=== PATIENT | male | born 1990 | race American Indian/Alaskan Native ===

== ENCOUNTER 2017-06-30 13:04 | Emergency (ER) | payer MEDICAID ==
[2017-06-30 13:46] VITALS: BP 110/55
[2017-06-30] MEDS ORDERED: Bacitracin Oint 1 GM U/D Packet TOP ONE (14:23)
[2017-06-30] MEDS ORDERED: Acetaminophen/HYDROcodone 325-5 MG Tab PO ONE (14:23)
[2017-06-30] MEDS ORDERED: Ibuprofen 600 MG Tab PO ONE (14:23)
--- NOTE | 2017-06-30 14:37 | EDM.PDOC ---
ED HPI GENERAL MEDICAL PROBLEM - General Chief Complaint: Upper Extremity Injury/Pain Stated Complaint: HURT RT MIDDLE FINGER Time Seen by Provider: 06/30/17 14:30 Source of Information: Reports: Patient History Limitations: Reports: No Limitations - History of Present Illness INITIAL COMMENTS - FREE TEXT/NARRATIVE: Rudi is an otherwise healthy 26 year old male who presents to the ED today with c/o increased swelling and pain to right middle finger. Patient denies any fever/nausea/vomiting. Any movement makes the pain worse, he has not been taking any medication to help improve the pain. Patient denies any injury. Does bite his nails frequently. Duration: Day(s): (5) - Related Data Allergies Allergy/AdvReac Type Severity Reaction Status Date / Time No Known Allergies Allergy Verified 06/30/17 13:56 Home Meds: Home Meds NK [No Known Home Meds] 06/30/17 [History] Past Medical History - Past Health History Medical/Surgical History: Denies Medical/Surgical History Social & Family History - Tobacco Use Smoking Status *Q: Current Every Day Smoker Years of Tobacco use: 10 Packs/Tins Daily: 0.2 Review of Systems - Review of Systems Review Of Systems: ROS reveals no pertinent complaints other than HPI. ED EXAM, GENERAL - Physical Exam Exam: See Below Exam Limited By: No Limitations General Appearance: Alert, WD/WN, No Apparent Distress Respiratory/Chest: No Respiratory Distress Cardiovascular: Regular Rate, Rhythm Extremities: Normal Inspection, Normal Range of Motion, Normal Capillary Refill Neurological: Alert, Oriented, CN II-XII Intact Psychiatric: Normal Affect, Normal Mood Skin Exam: Warm, Dry, Other (abscess to left lateral portion of left third distal phalangee consistent with paronychia. No redness or streaking proximally ) Lymphatic: No Adenopathy Course - Vital Signs Last Recorded V/S: Last Vital Signs Temp 35.9 C 06/30/17 14:00 Pulse 64 06/30/17 14:00 Resp 16 06/30/17 14:00 BP 110/55 L 06/30/17 14:00 Pulse Ox 98 06/30/17 14:00 Rudi is an otherwise healthy 26 year old male who presents to the ED today with c/o right middle finger swelling and pain. Patient has an acute paronychia with significant swelling. Finger tourniquet was used and area to the left of nail laterally was cleaned with hebicleans. Straight incision was made extending into area of swelling just under nail bed in soft tissue of finger with very large amounts of purulent and sanguineous drainage out. Area was well irrigated then washed with soap and water, bacitracin was applied and finger gauze. I will start patient on Augmentin for the next 10 days. He was given Ibuprofen and [place] here in the ED. He can continue taking Ibuprofen for pain and inflammation. I discussed with patient that it was pertinent he started his antibiotics today and made sure he completed them. I also informed patient that I would like him seen by his primary care provider on Sunday for wound recheck. Reasons to return to the ED were discussed in detail. Patient was agreeable to plan of care and discharged in stable condition. - Orders/Labs/Meds Meds: Medications Discontinued Medications Generic Name Dose Route Start Last Admin Trade Name Freq PRN Reason Stop Dose Admin Hydrocodone Bitart/Acetaminophen 2 tab 06/30/17 14:23 [place] 325-5 Mg PO 06/30/17 14:24 ONETIME ONE Bacitracin 1 dose 06/30/17 14:23 Bacitracin Oint 1 Gm TOP 06/30/17 14:24 ONETIME ONE Ibuprofen 600 mg 06/30/17 14:23 Motrin PO 06/30/17 14:24 ONETIME ONE Departure - Departure Time of Disposition: 14:45 Disposition: Home, Self-Care 01 Condition: Good Clinical Impression: Paronychia of finger of right hand - Discharge Information Instructions: Paronychia Referrals: PCP,None [Primary Care Provider] - Additional Instructions: Keep current dressing on for 24 hours. Take Ibuprofen for pain as prescribed. Take Augmentin as prescribed starting today as soon as you leave here. You have an impressive finger infection, you need to keep this clean, apply bacitracin twice daily for the next 3 days. You need to have this checked in clinic on Sunday to ensure it is healing well, if you cannot get into the clinic you can return to the Emergency Department for a wound check. If you develop any complications or worsening symptoms, please return here.
== END 2017-06-30 14:49 | disposition home or self-care (01) ==
LOC: JP.ED 13:04
DX: L03.011 Cellulitis of right finger (principal); F17.210 Nicotine dependence, cigarettes, uncomplicated
CPT/HCPCS: 99283; A9270